=== PATIENT | male | born 1955 | race Caucasian/White ===

== ENCOUNTER → 2021-01-03 06:40 | Outpatient (CLI) | payer MEDICARE, OTHER, SELFPAY ==
[2021-01-03 16:44] LABS: SARS-CoV-2 RNA PCR Negative
== END ==
PROVIDERS: PCP Family Medicine; Visit Provider Family Medicine
DX: R53.83 Other fatigue (principal); R06.02 Shortness of breath; Z20.822 Contact with and (suspected) exposure to COVID-19
CPT/HCPCS: C9803; U0003; U0005

== ENCOUNTER → 2021-09-12 00:25 | Outpatient (CLI) | payer MEDICARE, OTHER, SELFPAY ==
[2021-09-12 13:23] LABS: SARS-CoV-2 RNA PCR Negative
== END ==
PROVIDERS: PCP Family Medicine; Visit Provider Family Medicine
DX: R53.83 Other fatigue (principal); Z20.822 Contact with and (suspected) exposure to COVID-19
CPT/HCPCS: C9803; U0003; U0005

== ENCOUNTER 2023-05-26 04:15 | Emergency (ER) | payer MEDICARE, SELFPAY ==
--- NOTE | ~2023-05-26 | CT_ITS ---
EXAMINATION: CT abdomen pelvis wo/w con DATE: 05/26/2023 05:27 INDICATION: Flank and abdominal pain TECHNIQUE: Computed tomography (CT) of the abdomen and pelvis was performed without intravenous contr ast. CT of the abdomen and pelvis was then performed with a total of 100 mL Omnipaque 350 intravenous contrast. The dose-length product (DLP) was 1347.73 mGy-cm. Automated exposure control and iterative reconstruction technique were employed. COMPARISON: None FINDINGS: Minimal dependent atelectasis is present in the lung bases. The heart size is normal. There is a small sliding hiatal hernia. There is a 5 mm cyst of the right hepatic lobe. The spleen, pancre as, gallbladder, and adrenal glands are normal. There is a 2 mm stone of the right mid kidney. There is a 3 mm stone at the left ureterovesicular junction. There is mild left hydroureteronephrosis. No p athologically enlarged abdominal or pelvic lymph nodes are identified. No free intraperitoneal gas or evidence of bowel obstruction. There is calcified atherosclerosis of the aorta and many of the other arteries. There is formed stool in a few loops of nondistended small bowel, consistent with slow tra nsit. The appendix is normal. IMPRESSION: 1. 3 mm stone at the left ureterovesicular junction causing mild left hydroureteronephrosis. Reviewed, dictated and finalized at location [facility] IMPRESSION: 1. 3 mm stone at the left ureterovesicular junction causing mild left hydrouret eronephrosis.
[2023-05-26 04:18] VITALS: BP 156/79; PULSE 75; RESP 20; TEMP 36.9; O2SAT 100
[2023-05-26 04:37] LABS: Basophils Percent Auto 0.3 % (0.2-1.2); Eosinophils Absolute Auto 0.1 K/mm3 (0-0.3); Eosinophils Percent Auto 0.9 % (0-4.4); Hematocrit 44.5 % (42.0-52.0); Hemoglobin 14.3 g/dL (14.0-18.0); Immature Granulocyte Absolute 0.07 K/mm3 (0.00-0.031); Immature Granulocyte Percent A 0.7 % (0-0.5); Lymphocytes Absolute Auto 2.43 K/mm3 (0.9-3.2); Lymphocytes Percent Auto 23.1 % (18.3-44.2); Mean Corpuscular HGB Conc 32.1 g/dl (32-36); Mean Corpuscular Volume 87.3 fl (80-100); Mean Platelet Volume 9.8 fl (7.4-10.4); Monocytes Absolute Auto 0.6 K/mm3 (0.1-0.6); Neutrophils Absolute Auto 7.3 K/mm3 (1.3-6.7); Platelet Count Result 285 k/mm3 (150-375); Red Cell Distribution Width 12.7 % (11.5-14.5); White Blood Count 10.5 K/mm3 (4.5-10.0)
[2023-05-26 04:38] LABS: Appearance Urine Clear (Clear); Bilirubin Urine Negative (Negative); Blood Urine Negative (Negative); Color Urine Yellow (Yellow); Glucose Urine UA 3+ mg/dL (Negative); Ketones Urine Trace mg/dL (Negative); Leukocyte Esterase Ur Negative LEU/UL (Negative); Nitrate Urine Negative (Negative); Protein Urine Negative (Negative); Specific Grav Ur 1.034 (1.001-1.035); Urobilinogen Urine 0.2 mg/dL (<2.0)
[2023-05-26] MEDS: SODIUM CHLORIDE 0.9% IV 1,000 ML 999 ML IV CONT (04:38)
[2023-05-26] MEDS: MORPHINE SULFATE (*CRX) 4 MG/ML INJ IV PUSH (04:39)
--- NOTE | 2023-05-26 04:43 | ED.MALEGU ---
HPI - Male Genitourinary General Chief complaint: Urogenital-Male Stated complaint: left flank pain Time Seen by Provider: 05/26/23 04:30 Source: patient Limitations: no limitations History of Present Illness HPI Narrative: Patient is a 67yo male who presents with left flank pain. He has a history of kidney stones 25years ago during which he had 4-5 episodes. He never required stents or surgical procedures. Does not follow with a urologist. He denies any dysuria or hematuria. He describes the pain as dull, not radiating, 7 or 8 out of 10 in severity. He can not get into a comfortable position. He denies fevers but has been having some chills. He feels nauseated when he has waves of pain but denies any vomiting. Related Data Allergies Allergy/AdvReac Type Severity Reaction Status Date / Time No Known Allergies Allergy Mild Verified 03/30/23 09:52 [facility] Past Medical History Medical History (Updated 05/27/23 @ 00:00 by Part[employer]) Contact dermatitis and other eczema, due to unspecified cause Erectile dysfunction Essential (primary) hypertension Gouty arthropathy Hearing aid worn Leukoplakia of oral mucosa/tongue Mixed hyperlipidemia Other psoriasis Other psoriatic arthropathy Overweight (BMI 25.0-29.9) Rectal polyp Sensorineural hearing loss, unilateral, left ear, with unrestricted hearing on the contralateral side Snoring Trigger thumb, left thumb Type 2 diabetes mellitus without complications Family History Family History Father Diabetes mellitus Hypertension Family history of elevated blood lipids Family history of cardiovascular disease, Onset Age: 70 Sibling Diabetes mellitus Hypertension Family history of elevated blood lipids Mother Hypertension Family history of elevated blood lipids Carcinoma of colon Colon polyp Other Family history of malignant neoplasm of kidney Social History Social History Smoking status: Never smoker Second hand tobacco smoke exposure: No Alcohol intake: never Substance use: never Substance use type: does not use Lack of Transportation: No Lack of Food: Never True Current Housing: I Have Housing Concerned About Future Housing: No Difficulty Paying Gas/Electric Bills: No Difficulty Paying for Meds: No Currently Unemployed: No Education: Master's Degree or Higher Difficulty w/ Childcare or Family Care: No Living arrangements: with family Additional living arrangements comments: Occupation/Education: retired Gender identity (if verbalized by the patient): Male Sexual Orientation (if Verbalized by the Patient): Straight or Heterosexual Spiritual care concerns: No Exam Narrative: GENERAL: Well-appearing, well-nourished, and in no acute distress. HEAD: Normocephalic, atraumatic. EYES: EOMI. No scleral icteris. ENT: Nares clear, no rhinorrhea or epistaxis. NECK: Supple. No meningismus CHEST: Speaking in full sentences. No respiratory distress. HEART: Regular rate and rhythm. : No CVA tenderness bilaterally. ABDOMEN: Soft, nontender, nondistended. EXTREMITIES: Normal range of motion. No edema. SKIN: Warm, dry, no rash. NEURO: No focal deficits. Alert and oriented x3. PSYCH: Normal mood and affect. Course Vital Signs Vital signs: Vital Signs Temperature 98.4 F 05/26/23 04:18 Pulse Rate 75 05/26/23 04:18 Respiratory Rate 20 05/26/23 04:18 Blood Pressure 156/79 H 05/26/23 04:18 Pulse Oximetry 100 05/26/23 04:18 Oxygen Delivery Room Air 05/26/23 04:18 Temperature 98.4 F 05/26/23 04:18 Pulse Rate 83 05/26/23 06:42 Respiratory Rate 15 05/26/23 06:42 Blood Pressure 130/74 05/26/23 06:42 Pulse Oximetry 94 05/26/23 06:42 Oxygen Delivery Room Air 05/26/23 04:18 MDM - Male Genitourinary MDM Narrative Medical decision making narrative: This is
[2023-05-26 04:48] LABS: Alanine Aminotransferase 30 U/L (6-50); Albumin Level 4.7 g/dL (3.5-5.1); Alkaline Phosphatase 75 U/L (38-126); Anion Gap 13 mmol/L (8-16); Aspartate Amino Transferase 26 U/L (17-59); Bilirubin,Total 0.4 mg/dL (0.2-1.3); Blood Urea Nitrogen 19 mg/dL (9-20); Calcium 9.4 mg/dL (8.4-10.2); Carbon Dioxide 24 mmol/L (22-30); Chloride 101 mmol/L (98-107); Estimated CRCL calculation 73 ml/min; Estimated Glomerular Filt Rate > 60; Glucose 175 mg/dL (65-110); Potassium 3.9 mmol/L (3.4-5.0); Sodium 138 mmol/L (137-145)
[2023-05-26 04:50] LABS: Add Urine Microscopic? NO
[2023-05-26 06:42] VITALS: BP 130/74; PULSE 83; RESP 15; O2SAT 94
[2023-05-26] MEDS: ONDANSETRON INJ 4 MG/2 ML VIAL IV PUSH (06:50)
[2023-05-26] MEDS: TAMSULOSIN HCL 0.4 MG CAPSULE PO (06:50)
[2023-05-26] MEDS: KETOROLAC 15 MG/ML VIAL (*BKC) IV PUSH (06:50)
== END 2023-05-26 06:59 | disposition home or self-care (01) ==
PROVIDERS: Emergency Provider Student in an Organized Health Care Education/Training Program; PCP Family Medicine
DX: N13.2 Hydronephrosis with renal and ureteral calculous obstruction (principal); I10 Essential (primary) hypertension; E78.2 Mixed hyperlipidemia; E11.9 Type 2 diabetes mellitus without complications; M10.9 Gout, unspecified; L40.50 Arthropathic psoriasis, unspecified; Z87.442 Personal history of urinary calculi; Z87.19 Personal history of other diseases of the digestive system; Z79.84 Long term (current) use of oral hypoglycemic drugs
CPT/HCPCS: 36415; 74178; 80053; 81003; 85025; 96361; 96374; 96375; 99284; A9270; J1885; J2270; J2405; J7030; Q9967

== ENCOUNTER 2023-08-15 02:24 | Day surgery (SDC) | payer MEDICARE, SELFPAY ==
[2023-07-19 10:48] VITALS: BMI 26.7
--- NOTE | 2023-08-12 10:17 | SUR.PREOP ---
Patient called regarding upcoming procedure. Voicemail left regarding appointment times.
--- NOTE | 2023-08-12 13:35 | PM.HPGS ---
History of Present Illness History of Present Illness Consent: Risks, benefits, and alternatives have been discussed and questions answered. Patient agrees to proceed with procedure. Chief complaint: hx colon polyps, rectal polyp Narrative: Trevon Barnett is a 68 year old male referred for colon cancer screening. Five years ago he had 2 small rectal polyps removed at a different institution. Review of Systems Review of Systems: All systems reviewed & are unremarkable except as noted in HPI and below PMFSH Past Medical History Medical History Calcium oxalate calculus of kidney Contact dermatitis and other eczema, due to unspecified cause Erectile dysfunction Essential (primary) hypertension Gouty arthropathy Hearing aid worn Hiatal hernia Leukoplakia of oral mucosa/tongue Mixed hyperlipidemia Other psoriasis Other psoriatic arthropathy Overweight (BMI 25.0-29.9) Rectal polyp Sensorineural hearing loss, unilateral, left ear, with unrestricted hearing on the contralateral side Snoring Trigger thumb, left thumb Type 2 diabetes mellitus without complications Family History Family History Father Diabetes mellitus Hypertension Family history of elevated blood lipids Family history of cardiovascular disease, Onset Age: 70 Sibling Diabetes mellitus Hypertension Family history of elevated blood lipids Mother Hypertension Family history of elevated blood lipids Carcinoma of colon Colon polyp Other Family history of malignant neoplasm of kidney Social History Social History Smoking status: Former smoker Tobacco type: pipe Second hand tobacco smoke exposure: No Alcohol intake: current Alcohol use details: rarely Substance use: never Substance use type: other Other substance usage details: occasional THC gummy Lack of Transportation: No Lack of Food: Never True Current Housing: I Have Housing Concerned About Future Housing: No Difficulty Paying Gas/Electric Bills: No Difficulty Paying for Meds: No Currently Unemployed: No Education: Master's Degree or Higher Difficulty w/ Childcare or Family Care: No Living arrangements: with family Additional living arrangements comments: Occupation/Education: retired Gender identity (if verbalized by the patient): Male Sexual Orientation (if Verbalized by the Patient): Straight or Heterosexual Spiritual care concerns: No Meds Home Medications and Allergies Home Medications Medication Instructions Recorded Confirmed Type metformin 500 mg tablet,extended 500 mg PO .COMPLEX #270 tabs 07/19/22 07/19/23 Rx release 24hr (osmotic) rosuvastatin 5 mg tablet See Rx Instructions .Route 07/19/22 07/19/23 Rx .COMPLEX #90 tabs telmisartan 80 mg tablet See Rx Instructions .Route 07/19/22 07/19/23 Rx .COMPLEX #90 tabs empagliflozin 25 mg tablet 25 mg PO DAILY #90 tabs 12/06/22 07/19/23 Rx (Jardiance) sildenafil 100 mg tablet 100 mg PO DAILY PRN sexual 02/21/23 07/19/23 Rx activity #27 tabs ibuprofen 600 mg tablet 600 mg PO TID PRN pain 6 days #20 05/26/23 07/19/23 Rx tabs tamsulosin 0.4 mg capsule 0.4 mg PO HS 14 days #14 caps 05/26/23 07/19/23 Rx aspirin 81 mg capsule 81 mg PO DAILY 06/13/23 07/19/23 History coenzyme Q10 10 mg capsule (Co 10 mg PO ONCE 06/13/23 07/19/23 History Q-10) Allergies Allergy/AdvReac Type Severity Reaction Status Date / Time No Known Allergies Allergy Mild Verified 07/19/23 10:44 Exam Resp: Auscultation: clear to auscultation bilaterally Cardio: Rate: regular rate Rhythm: regular rhythm GI: GI Palp: Yes Soft to palpation and No Tenderness to palpation present (GI) Assessment and Plan Assessment and plan (1) Colon cancer screening: Code(s): Z12.11 - Encounter for screening for malig
[2023-08-15 07:16] VITALS: BP 150/87; PULSE 65; RESP 18; TEMP 36.4; O2SAT 100
[2023-08-15 07:36] LABS: Glucose Point of Care 142 mg/dl (65-105)
[2023-08-15] MEDS: LACTATED RINGERS 1,000 ML 150 ML IV CONT (07:40)
--- NOTE | 2023-08-15 07:57 | WPDANESEPPF ---
Anes - Initial Pre Proc Eval Procedure: Operation Date: 08/15/23 08:30 Proposed Procedures p Colonoscopy - Ronak Green MD Date/Time: 08/15/23 07:57 Surgeon: Ronak Green MD Pre Op Diagnosis: hx colon polyps, rectal polyp Patient Data Age: 68 Gender: M Height: 1.7 m Weight: 74.4 kg Last Vital Signs Temp 97.5 F L 08/15/23 07:16 Pulse 65 08/15/23 07:16 Resp 18 08/15/23 07:16 BP 150/87 H 08/15/23 07:16 Pulse Ox 100 08/15/23 07:16 O2 Del Method Room Air 08/15/23 07:16 Allergies Allergy/AdvReac Type Severity Reaction Status Date / Time No Known Allergies Allergy Mild Verified 07/19/23 10:44 Home Medications Medication Instructions Recorded Confirmed Type metformin 500 mg tablet,extended 500 mg PO .COMPLEX #270 tabs 07/19/22 07/19/23 Rx release 24hr (osmotic) rosuvastatin 5 mg tablet See Rx Instructions .Route 07/19/22 07/19/23 Rx .COMPLEX #90 tabs telmisartan 80 mg tablet See Rx Instructions .Route 07/19/22 07/19/23 Rx .COMPLEX #90 tabs empagliflozin 25 mg tablet 25 mg PO DAILY #90 tabs 12/06/22 07/19/23 Rx (Jardiance) sildenafil 100 mg tablet 100 mg PO DAILY PRN sexual 02/21/23 07/19/23 Rx activity #27 tabs ibuprofen 600 mg tablet 600 mg PO TID PRN pain 6 days #20 05/26/23 07/19/23 Rx tabs tamsulosin 0.4 mg capsule 0.4 mg PO HS 14 days #14 caps 05/26/23 07/19/23 Rx aspirin 81 mg capsule 81 mg PO DAILY 06/13/23 07/19/23 History coenzyme Q10 10 mg capsule (Co 10 mg PO ONCE 06/13/23 07/19/23 History Q-10) Laboratory Tests 08/15/23 07:34 POC Capillary Glucose 142 H mg/dl (65-105) Patient hx anesthesia problems: none Family hx anesthesia problems: none Results Review: All pre-operative results and documents have been reviewed as part of the pre-operative evaluation. [facility] Past Medical History Medical History Calcium oxalate calculus of kidney Contact dermatitis and other eczema, due to unspecified cause Erectile dysfunction Essential (primary) hypertension Gouty arthropathy Hearing aid worn Hiatal hernia Leukoplakia of oral mucosa/tongue Mixed hyperlipidemia Other psoriasis Other psoriatic arthropathy Overweight (BMI 25.0-29.9) Rectal polyp Sensorineural hearing loss, unilateral, left ear, with unrestricted hearing on the contralateral side Snoring Trigger thumb, left thumb Type 2 diabetes mellitus without complications Family History Family History Father Diabetes mellitus Hypertension Family history of elevated blood lipids Family history of cardiovascular disease, Onset Age: 70 Sibling Diabetes mellitus Hypertension Family history of elevated blood lipids Mother Hypertension Family history of elevated blood lipids Carcinoma of colon Colon polyp Other Family history of malignant neoplasm of kidney Social History Social History Smoking status: Former smoker Tobacco type: pipe Second hand tobacco smoke exposure: No Alcohol intake: current Alcohol use details: rarely Substance use: never Substance use type: other Other substance usage details: occasional THC gummy Lack of Transportation: No Lack of Food: Never True Current Housing: I Have Housing Concerned About Future Housing: No Difficulty Paying Gas/Electric Bills: No Difficulty Paying for Meds: No Currently Unemployed: No Education: Master's Degree or Higher Difficulty w/ Childcare or Family Care: No Living arrangements: with family Additional living arrangements comments: Occupation/Education: retired Gender identity (if verbalized by the patient): Male Sexual Orientation (if Verbalized by the Patient): Straight or Heterosexual Spiritual care concerns: No Anes - Eval Final PreProcedure Day of Procedure 08/15/23 07:57 [facility]
[2023-08-15] MEDS: SIMETHICONE ORAL SUSPENSION 20 MG/0.3 ML 30 ML BOTTLE 0.6 ML IRRIGATION (08:23)
[2023-08-15 08:35] VITALS: BP 106/72; PULSE 74; RESP 18; O2SAT 97
[2023-08-15 08:45] VITALS: BP 114/80; PULSE 76; RESP 18; O2SAT 98
[2023-08-15 08:55] VITALS: BP 124/76; PULSE 66; RESP 20; O2SAT 99
== END 2023-08-15 09:01 | disposition home or self-care (01) ==
PROVIDERS: PCP Family Medicine; Visit Provider Internal Medicine Gastroenterology
PROC: 0DJD8ZZ Inspection of Lower Intestinal Tract, Via Natural or Artificial Opening Endoscopic (ICD-10-PCS; CPT 45378; principal; 2023-08-15 08:30)
DX: Z12.11 Encounter for screening for malignant neoplasm of colon (principal); K62.1 Rectal polyp; K64.8 Other hemorrhoids; K57.30 Diverticulosis of large intestine without perforation or abscess without bleeding; I10 Essential (primary) hypertension; E78.2 Mixed hyperlipidemia; E11.9 Type 2 diabetes mellitus without complications; N52.9 Male erectile dysfunction, unspecified; Z79.84 Long term (current) use of oral hypoglycemic drugs; Z79.82 Long term (current) use of aspirin; Z87.891 Personal history of nicotine dependence; Z82.49 Family history of ischemic heart disease and other diseases of the circulatory system; Z80.0 Family history of malignant neoplasm of digestive organs; Z80.51 Family history of malignant neoplasm of kidney
CPT/HCPCS: 45380; 82948; 88305; J2001; J2704; J7120